=== PATIENT | female | born 1935 | race Two or more races ===

== ENCOUNTER 2017-01-19 12:00 | Outpatient (CLI) | payer MEDICARE, MEDICAID | END 2017-01-19 23:59 | disposition home health service (06) | LOC: WOU 12:00 | PROVIDERS: ATTEND Specialist | DX: L89.152 Pressure ulcer of sacral region, stage 2 (principal); E11.21 Type 2 diabetes mellitus with diabetic nephropathy; E11.22 Type 2 diabetes mellitus with diabetic chronic kidney disease; N18.6 End stage renal disease; Z99.2 Dependence on renal dialysis; Z87.81 Personal history of (healed) traumatic fracture | CPT/HCPCS: A6402 ==

== ENCOUNTER 2017-02-02 12:35 | Outpatient (CLI) | payer MEDICARE, MEDICAID | END 2017-02-02 23:59 | disposition home or self-care (01) | LOC: WOU 12:35 | PROVIDERS: ATTEND Specialist | DX: L89.151 Pressure ulcer of sacral region, stage 1 (principal); E11.22 Type 2 diabetes mellitus with diabetic chronic kidney disease; N18.6 End stage renal disease; Z99.2 Dependence on renal dialysis; Z79.899 Other long term (current) drug therapy | CPT/HCPCS: A6402; G0463 ==